=== PATIENT | male | born 1980 | race Caucasian/White ===

== ENCOUNTER 2019-07-27 16:34 | Emergency (ER) | payer SELFPAY ==
[~2019-07-27] VITALS: Ht 182.9 cm; Wt 83.9 kg
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
[2019-07-27 16:35] VITALS: BP_SYST 123
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
--- NOTE | 2019-07-27 17:07 | NUR ---
NEO Yepez at bedside examining patient.
[2019-07-27 17:15] VITALS: BP_SYST 123
--- NOTE | 2019-07-27 17:15 | NUR ---
Note undone in EDM - 07/27/19 at 1757 by [email or web address] Patient given written and verbal discharge instructions and verbalizes understanding. ER MD Yepez discussed with patient the results and treatment provided. Patient in stable condition. ID arm band removed. No Rx given. Patient educated on pain management and to follow up with PMD. Pain Scale []. Opportunity for questions provided and answered. Medication side effect fact sheet provided.
--- NOTE | 2019-07-27 17:15 | NUR ---
Patient given written and verbal discharge instructions and verbalizes understanding. ER MD discussed with patient the results and treatment provided. Patient in stable condition. ID arm band removed. No Rx given. Patient educated on pain management and to follow up with PMD. Pain Scale 0. Opportunity for questions provided and answered. Medication side effect fact sheet provided.
== END 2019-07-27 17:15 ==
LOC: SED 16:34
DX: R07.81 Pleurodynia (principal); F17.210 Nicotine dependence, cigarettes, uncomplicated
CPT/HCPCS: 99283